=== PATIENT | female | born 2005 | race Caucasian/White ===

== ENCOUNTER 2023-04-07 12:16 | Day surgery (SDC) | payer OTHER ==
[2023-04-02 14:52] VITALS: BMI 26.5
[2023-04-07 12:45] VITALS: RESP 20; TEMP 97
[2023-04-07] MEDS ORDERED: LIDOCAINE HCL/PF 2% SDV 5ML VIAL ONE ×2 (13:17→13:39)
[2023-04-07] MEDS ORDERED: PROPOFOL 60 ML ONE (13:17)
[2023-04-07] MEDS ORDERED: ONDANSETRON 4 MG/2 ML VIAL ONE (13:40)
[2023-04-07] MEDS ORDERED: GLYCOPYRROLATE 0.2 MG/1 ML VIAL ONE (13:40)
[2023-04-07 14:21] VITALS: BP 102/60; PULSE 64
== END 2023-04-07 14:10 | disposition home or self-care (01) ==
LOC: FASU-ENDO 12:16
PROVIDERS: ATTEND Internal Medicine Gastroenterology
PROC: 0DB68ZX Excision of Stomach, Via Natural or Artificial Opening Endoscopic, Diagnostic (ICD-10-PCS; 2023-04-07)
PROC: 0DB48ZX Excision of Esophagogastric Junction, Via Natural or Artificial Opening Endoscopic, Diagnostic (ICD-10-PCS; 2023-04-07)
PROC: 0DB98ZX Excision of Duodenum, Via Natural or Artificial Opening Endoscopic, Diagnostic (ICD-10-PCS; principal; 2023-04-07 13:00)
DX: R10.13 Epigastric pain (principal)
CPT/HCPCS: 81025; 88305-TC; 88342-TC